=== PATIENT | male | born 1990 | race African-American/Black ===

== ENCOUNTER 2016-10-15 15:38 | Emergency (ER) | payer SELFPAY ==
[~2016-10-15] VITALS: Ht 180.3 cm; Wt 111.4 kg
[~2016-10-15 15:38] MED LIST: NO HOME MEDICATIONS
[2016-10-15 16:24] VITALS: BP 136/78; PULSE 53; TEMP 98.6
== END 2016-10-15 16:39 | disposition left against medical advice (07) ==
LOC: COL.ER 15:38
DX: Z53.21 Procedure and treatment not carried out due to patient leaving prior to being seen by health care provider (principal)

== ENCOUNTER 2018-11-04 16:12 | Emergency (ER) | payer SELFPAY ==
[~2018-11-04] VITALS: Ht 180.3 cm; Wt 110.5 kg
[2018-11-04 16:25] VITALS: TEMP 98.3
[2018-11-04 17:43] LABS: BASO % 0.7 % (0.0-2.0); EOS # 0.1 (0.0-0.7); GRAN # 3.4 (1.4-6.5); GRAN % 57.3 % (42.2-75.2); HEMATOCRIT 41.7 % (42.0-52.0); HEMOGLOBIN 13.2 g/dl (13.5-18.0); LYMPH % 32.5 % (20.0-51.0); MEAN CELL VOLUME 88 fl (80.0-100.0); MEAN CORPUSCULAR HEMOGLOBIN 28 pg (27.0-31.0); MEAN CORPUSCULAR HGB CONC 32 g/dl (33.0-37.0); MEAN PLATELET VOLUME 10.3 fl (7.4-10.4); MONO # 0.5 (0.1-0.6); MONO % 8.3 % (1.7-9.3); PLATELET COUNT 194 K/mm3 (130-400); RED BLOOD COUNT 4.74 M/mm3 (4.20-5.60); REDCELL DISTRIBUTION WIDTH-CV 13.1 % (11.5-14.5)
[2018-11-04 17:49] LABS: ALANINE AMINOTRANSFERASE 23 U/L (21-72); ALBUMIN 4.2 gm/dL (3.5-5.0); ALKALINE PHOSPHATASE 84 U/L (50-136); ANION GAP 6 mmol/L (7-16); AST,SGOT 25 U/L (15-37); BILIRUBIN,TOTAL 0.5 mg/dL (0.0-1.0); BLOOD UREA NITROGEN 11 mg/dL (9-20); CALCIUM 9.2 mg/dL (8.4-10.2); CARBON DIOXIDE 31 mmol/L (22-30); CHLORIDE 103 mmol/L (98-107); CREATININE, serum 1.05 mg/dL (0.66-1.25); GLUCOSE 105 mg/dL (74-106); LIPASE 99 U/L (23-300); POTASSIUM 4.2 mmol/L (3.4-5.0); SODIUM 141 mmol/L (137-145); TOTAL PROTEIN 7.6 gm/dL (6.4-8.2)
[2018-11-04 18:02] LABS: TROPONIN-I < 0.012 ng/mL (0.000-0.035)
[2018-11-04 18:14] VITALS: BP 129/66; PULSE 63
== END 2018-11-04 18:14 | disposition home or self-care (01) ==
LOC: COL.ER 16:12
PROVIDERS: Nurse Practitioner
DX: R07.89 Other chest pain (principal)

== ENCOUNTER 2019-04-25 19:41 | Emergency (ER) | payer BC ==
[~2019-04-25] VITALS: Ht 180.3 cm; Wt 113.6 kg
[2019-04-25 19:44] VITALS: TEMP 97.8
[2019-04-25 21:23] LABS: BASO # 0.1 (0.0-0.2); BASO % 0.7 % (0.0-2.0); EOS # 0.1 (0.0-0.7); EOS % 1.2 % (0-4.0); GRAN # 3.7 (1.4-6.5); GRAN % 50.5 % (42.2-75.2); HEMATOCRIT 41.6 % (42.0-52.0); HEMOGLOBIN 13.3 g/dl (13.5-18.0); LYMPH # 2.9 (1.2-3.4); LYMPH % 39.3 % (20.0-51.0); MEAN CELL VOLUME 88 fl (80.0-100.0); MEAN CORPUSCULAR HEMOGLOBIN 28 pg (27.0-31.0); MEAN CORPUSCULAR HGB CONC 32 g/dl (33.0-37.0); MEAN PLATELET VOLUME 10.1 fl (7.4-10.4); MONO # 0.6 (0.1-0.6); MONO % 8.2 % (1.7-9.3); PLATELET COUNT 203 K/mm3 (130-400); RED BLOOD COUNT 4.71 M/mm3 (4.20-5.60); REDCELL DISTRIBUTION WIDTH-CV 12.8 % (11.5-14.5)
[2019-04-25 21:35] LABS: ALANINE AMINOTRANSFERASE 32 U/L (21-72); ALBUMIN 4.4 gm/dL (3.5-5.0); ALKALINE PHOSPHATASE 81 U/L (50-136); ANION GAP 7 mmol/L (7-16); AST,SGOT 35 U/L (15-37); BILIRUBIN,TOTAL 0.7 mg/dL (0.0-1.0); BLOOD UREA NITROGEN 13 mg/dL (9-20); CALCIUM 9.1 mg/dL (8.4-10.2); CARBON DIOXIDE 30 mmol/L (22-30); CHLORIDE 103 mmol/L (98-107); CREATININE, serum 0.98 (0.66-1.25); GLUCOSE 88 mg/dL (74-106); SODIUM 140 mmol/L (137-145); TOTAL PROTEIN 7.8 gm/dL (6.4-8.2)
[2019-04-25 21:48] LABS: TROPONIN-I < 0.012 ng/mL (0.000-0.035)
[2019-04-25 23:00] VITALS: BP 153/80; PULSE 84
== END 2019-04-25 23:00 | disposition home or self-care (01) ==
LOC: COL.ER 19:41
PROVIDERS: Physician Assistant
DX: R07.89 Other chest pain (principal)

== ENCOUNTER 2022-05-10 02:39 | Emergency (ER) | payer SELFPAY ==
[~2022-05-10] VITALS: Ht 182.9 cm; Wt 117.3 kg
[2022-05-10 02:42] VITALS: BP 151/79; TEMP 97.7
[2022-05-10 03:05] VITALS: PULSE 64
== END 2022-05-10 03:05 | disposition home or self-care (01) ==
LOC: COL.ER 02:39
DX: R51.9 Headache, unspecified (principal); Z86.69 Personal history of other diseases of the nervous system and sense organs; Z28.310 Unvaccinated for COVID-19